=== PATIENT | female | born 1945 | race Caucasian/White ===

== ENCOUNTER 2020-09-16 10:13 | Outpatient (CLI) | payer MEDICARE, SELFPAY ==
--- NOTE | 2020-09-16 10:23 | MM_ITS ---
WS: [id number] BILATERAL SCREENING DIGITAL MAMMOGRAM WITH CAD HISTORY: SCREENING COMPARISON: 05/20/2019, 04/12/2018 and 11/11/2015 Bilateral CC and MLO views submitted. Computer aided detection analyzed. Breast composition: The breasts are heterogeneously dense, which may obscure small masses. No suspici ous masses, microcalcifications or architectural distortion. Asymmetries are stable. Benign breast ar terial calcifications in each breast. MM/[place] [id number] IMPRESSION: BI-RADS: 2-Benign FOLLOW UP: 1 Year Follow-up
--- NOTE | 2020-09-16 10:59 | XR_ITS ---
WS: [id number] DEXA (DUAL ENERGY X-RAY ABSORPTIOMETRY) Bone mineral density was performed using a [employer] machine. HISTORY: OSTEOPOROSIS COMPARISON: 04/12/2018 Lumbar spine BMD (L1-L4): 0.786 g/cm2 T score: -3.3 Z score: -1.2 Total hip BMD: Left: 0.728 g/cm2. T score: -2.2 Z score: -0.4 Right: 0.788 g/cm2. T score: -1.7 Z score: 0.1 10 year probability of a major osteoporotic fracture is 23%. Compared to the prior study from 04/12/2018. Lumbar spine bone mineral density has increased by 7.2%. Bilateral hips bone mineral density has decreased by 3.7%. XR/XR DEXA axial skeleton* [id number] IMPRESSION: OSTEOPOROSIS based upon the WHO classification for females. Significant increase in bone mineral density in the lumbar spine but significan t decrease in bone mineral density in the hips since the prior study.
== END 2020-09-16 10:14 | disposition home or self-care (01) ==
LOC: RADSHAW 10:22
PROVIDERS: PCP Electrodiagnostic Medicine; Visit Provider Electrodiagnostic Medicine
DX: Z12.31 Encounter for screening mammogram for malignant neoplasm of breast (principal); M81.0 Age-related osteoporosis without current pathological fracture
CPT/HCPCS: 77067; 77080

== ENCOUNTER 2022-05-09 07:09 | Outpatient (CLI) | payer MEDICARE, SELFPAY ==
--- NOTE | 2022-05-09 07:24 | MM_ITS ---
WS: [id number] BILATERAL SCREENING DIGITAL TOMOSYNTHESIS MAMMOGRAM WITH CAD HISTORY: SCREENING COMPARISON: 09/16/2020, 05/20/2019 Bilateral CC and MLO views with tomosynthesis and synthetic mammography submitted. Computer aided det ection analyzed. Breast composition: There are scattered areas of fibroglandular density. No suspicious masses, microc alcifications or architectural distortion. Asymmetric tissue in the upper outer quadrant. Bilateral b reast arterial calcifications. There is a soft tissue nodule against the posterior RIGHT chest wall o n the MLO projection which is a vessel. MM/[place] [id number] IMPRESSION: BI-RADS: 2-Benign FOLLOW UP: 1 Year Follow-up
== END 2022-05-09 07:10 | disposition home or self-care (01) ==
PROVIDERS: PCP Electrodiagnostic Medicine; Visit Provider Electrodiagnostic Medicine
DX: Z12.31 Encounter for screening mammogram for malignant neoplasm of breast (principal)
CPT/HCPCS: 77063; 77067

== ENCOUNTER 2022-11-15 14:05 | Outpatient (CLI) | payer MEDICARE, SELFPAY ==
--- NOTE | 2022-11-15 14:17 | XR_ITS ---
WS: [id number] DEXA (DUAL ENERGY X-RAY ABSORPTIOMETRY) Bone mineral density was performed using a [employer] machine. HISTORY: OSTEOPOROSIS COMPARISON: 09/16/2020 Lumbar spine BMD (L1-L4): 0.720 g/cm2 T score: -3.8 Z score: -1.8 Total hip BMD: Left: 0.695 g/cm2. T score: -2.5 Z score: -0.5 Right: 0.762 g/cm2. T score: -1.9 Z score: 0.0 10 year probability of a major osteoporotic fracture is 28.3%. Compared to the prior study from 09/16/2020. Lumbar spine bone mineral density has decreased by 8.4%. Bilateral hips bone mineral density has decreased by 3.8%. XR/XR DEXA axial skeleton* [id number] IMPRESSION: OSTEOPOROSIS based upon the WHO classification for females. Significant decrease in bone mineral density within the hips and lumbar spine s marko the prior study.
== END 2022-11-15 14:06 | disposition home or self-care (01) ==
PROVIDERS: PCP Electrodiagnostic Medicine; Visit Provider Electrodiagnostic Medicine
DX: M81.0 Age-related osteoporosis without current pathological fracture (principal)
CPT/HCPCS: 77080

== ENCOUNTER → 2023-04-26 13:09 | Outpatient (BNVA) | payer MEDICARE, SELFPAY | PROVIDERS: PCP Electrodiagnostic Medicine; Visit Provider Nurse Practitioner Women's Health | DX: N39.0 Urinary tract infection, site not specified (principal) | CPT/HCPCS: 81000; 87086 ==

== ENCOUNTER 2024-11-22 12:24 | Outpatient (CLI) | payer MEDICARE, SELFPAY ==
--- NOTE | 2024-11-22 12:43 | XR_ITS ---
WS: [id number] SCREENING DEXA SCAN [employer] CLINICAL INFORMATION: OSTEOPOROSIS COMPARISON: 2022 FINDINGS: The L1-L4 bone mineral density measures 0.817 g/cm2. This corresponds to a T score score of -3.0 and Z score of -0.8. Left femoral neck bone mineral density measures 0.739 g/cm2. This corresponds to a T score of -2.1 and Z score of 0.0. Right femoral neck bone mineral density measures 0.764 g/cm2. This corresponds to a T score -1.9of and Z score of 0.2. Mean femoral neck bone mineral density measures 0.751 g/cm2. This corresponds to a T score of -2.0 and Z score of 0.1. XR/XR DEXA axial skeleton* [id number] IMPRESSION: Osteoporosis lumbar spine. Osteopenia femoral necks. Patient's FRAX calculated 10 year probability for major osteoporotic fracture i s 24.8% and osteoporotic hip fracture is 8.7%. Bone marrow density lumbar spine increased 13.5% Bone mineral density femoral necks increased 3.0%
== END 2024-11-22 12:25 | disposition home or self-care (01) ==
LOC: RAD 12:26
PROVIDERS: PCP Electrodiagnostic Medicine; Visit Provider Electrodiagnostic Medicine
DX: Z13.820 Encounter for screening for osteoporosis (principal); M81.0 Age-related osteoporosis without current pathological fracture; M85.80 Other specified disorders of bone density and structure, unspecified site
CPT/HCPCS: 77080

== ENCOUNTER 2025-03-03 22:05 | Emergency (ER) | payer MEDICARE, SELFPAY ==
--- OUTSIDE RECORDS SUMMARY | 2025-03-03 22:13 | XMS_ITS | Patient Health Record ---
Author Organization [facility] Address [address] [place] [address] Care Team Providers Care Information Coder Name Role Phone Rachele Mann Unavailable [phone] Allergies Allergen (clinical drug ingredient) Drug/Non Drug Allergy documented on EMR Reaction Allergy Type Onset Date Status acetaminophen / oxycodone oxyCODONE-Acetaminoph en , Drug Allergy Active Reason For Referral No Information Medications Medication SIG (Take, Route, Frequency, Duration) Notes Start Date End Date Status Iron 90 (18 Fe) MG Tablet 1 tablet Orally Once a day Active Metoprolol Succinate ER 25 MG Tablet Extended Release 24 Hour 1 tablet Orally Once a day; Duration: 90 days Active Vitamin B 12 500 MCG Tablet 1 tablet Orally Once a day A ctive Vitamin D 50 MCG (1999 UT) Capsule 1 capsule Orally Once a day Active Immunizations Vaccine Route Administration Date Status Comme nts Influenza (whole), CPT 99680 Inactive Unknown 04/12/2015 Administered Social History Tobacco Use: Social History Observation Description Date Details (start date - stop date) Never Smoker NA - NA Social History Drugs/Alcohol: Social Info Question Answer Notes Alcohol Screen (Audit-C) Did you have a drink containing alcohol in the past year? No Points 0 Interpretation Negative Tobacco Use: Social Info Question Answer Notes xTobacco Use/Smoking Are you a nonsmoker Additional Details Category Social Info Options Details zzMigrated Social History Migrated Social History Smoking Status:Never smoked tobacco (finding) Problems Problem Type SNOMED Code ICD Code Onset Dates Problem Status W/U Status Risk Notes Problem Essential hypertension (40408418) Hypertension, unspecified type (I10) Active confirmed Problem Vitamin D deficiency (18630875) Vitamin D deficiency (E55.9) Active confirmed Plan Of Treatment No Information Insurance Providers Payer Name Payer Address Payer Phone Subscriber Number Group Number Insured Name Patient Relationship to Insured Coverage Start Date Coverage End Date [place] Medicare [address] [place]ICK[place] [phone] [id number] Adelaida Osman Self - patient is the insured [facility] [address] [place] [address] [place] [phone] [id number] Adelaida Osman Self - patient is the insured Medical (General) History Medical History History ICD Code Problem:Osteoporosis (disorder) , Status :: Active
--- OUTSIDE RECORDS SUMMARY | 2025-03-03 22:13 | XMS_ITS | Clinical Summary ---
Author Organization [facility] Address [address] [address] Care Team Providers Care Manufacturing Technician Name Role Phone Sang Joseph Primary Care Provider [phone] Allergies Active Allergy Reactions Criticality Noted Date Comments Oxycodone-Acetaminophen Itching Low 09/22/2014 Medications ofloxacin (OCUFLOX) 0.3 % solutionIndicat ions:Senile cataract, unspecified 1 Drop by See Admin Instructions route 3 times daily 1 drop in operative eye three times a day.. 5 mL 0 5 Active metoprolol succinate (TOPROL XL) 25 mg Extended Release 24 hour tablet 5 Active ASPIRIN (ASPIR-81 ORAL) Acti ve Active Problems Problem Noted Date Diagnosed Date Pseudophakia of right eye 10/22/2014 Family History Medical History Relation Name Comments Cataract Neg Hx Detachment/Tears Neg Hx Diabetes Neg Hx Glaucoma Neg Hx Macular Degen Neg Hx Social History Tobacco Use Types Packs/Day Years Used Date Smoking Tobacco: Never Smokeless Tobacco: Never Alcohol Use Standard Drinks/Week Comments Yes 0 (1 standard drink = 0.6 oz pur e alcohol) rare Comments Unknown Sex and Gender Information Value Date Recorded Sex Assigned at Not on file Legal Sex Female 9:42 AM CDT Gender Identity Not on file Sexual Orientation Not on file Last Filed Vital Signs Vital Sign Reading Time Taken Comments Blood Pressure 103/59 11/18/2014 4:07 PM CDT Pulse 74 11/18/2014 4:07 PM CDT Temperature 36.2 C (97.2 F) 11/18/2014 2:30 PM CDT Respiratory Rate 14 11/18/2014 2:30 PM CDT Oxygen Saturation 99% 11/18/2014 2:30 PM CDT Inhaled Oxygen Concentration - - Weight 56.7 kg (125 lb) 11/18/2014 4:07 PM CDT Height 165.1 cm (5' 5 ) 11/18/2014 4:07 PM CDT Body Mass Index 20.8 11/18/2014 4:07 PM CDT Plan of Treatment Health Maintenance Due Date Last Done Comments DTAP/TDAP/TD VACCINES (1 - Tdap) 08/13/1966 PNEUMOCOCCAL VACCINE 50+ YEARS (1 of 1 - PCV) 08/13/18 98 ZOSTER VACCINE (1 of 2) 08/13/1997 OSTEOPOROSIS SCREENING 08/13/2012 RSV VACCINE (60+ or ) (1 - 1-dose 75+ series) 08/13/2022 INFLUENZA VACCINE (#1) 2025 Medical Devices Implanted Type Area Auto Claim Representative Device Identifier Shelf Expiration Date Model / Serial / Lot Lens Io Tecnis 1pc 23 [id number] - [id number] Implanted:Qty: 1 on 10/15/2014 by Wilbur Rascon MD at [facility] Right: Eye [employer] 08/01/2018 [id number] / [id number] / Lens Io Tecnis 1pc 22.5 [id number] - [id number] Implanted:Qty: 1 on 11/18/2014 by Wilbur Rascon MD at [facility] Left: Eye [employer] 08/15/2018 [id number] / [id number] / Insurance RT [address] [place] [address] MEDICARE PART A AND B [facility] Advance Directives For more information, please contact: [phone] * Full Code (Latest Code Status on File) Date Activated Date Inactivated Comments 11/18/2014 12:25 PM 11/18/2014 4:51 PM * Full Code Date Activated Date Inactivated Comments 10/15/2014 11:40 AM 10/15/2014 4:03 PM Care Teams Manufacturing Technician Relationship Specialty Start Date End Date Sang Joseph DO [address] [place] [id number] PCP - General Family Practice 09/22/14
--- OUTSIDE RECORDS SUMMARY | 2025-03-03 22:13 | XMS_ITS | Clinical Summary ---
Author Organization [employer] Address [address] [facility] Attn: Epic Prelude [address]T [address] [place] [address] Care Team Providers Care Grinder Setup Operator Name Role Phone OpalSang Primary Care Provider [phone] Allergies Active Allergy Reactions Criticality Noted Date Comments Oxycodone-Acetaminophen Itching Low 09/22/2014 Medications metoprolol succinate (TOPROL XL) 25 mg Extended Release 24 hour tablet 5 Active aspirin (ASPIR-81 ORAL) 5 Active ofloxacin (OCUFLOX) 0.3 % solutionIndicat ions:Senile cataract, unspecified 1 Drop by See Admin Instructions route 3 times daily 1 drop in operative eye three times a day.. 5 mL 0 5 Active Active Problems Problem Noted Date Diagnosed Date [...] drink = 0.6 oz pur e alcohol) Comments Unknown Sex and Gender Information Value Date Recorded Sex Assigned at Not on file Legal Sex Female 3:39 AM HOSE HANDLER Gender Identity Not on file Sexual Orientation Not on file Last Filed Vital Signs Vital Sign Reading Time Taken Comments Blood Pressure 103/59 11/18/2014 4:07 PM CDT Pulse 74 11/18/2014 4:07 PM CDT Temperature 36.2 C (97.2 F) 11/18/2014 2:30 PM CDT Respiratory Rate 14 11/18/2014 2:30 PM CDT Oxygen Saturation - - Inhaled Oxygen Concentration - - Weight 56.7 [...] (#1) 2025 Medical Devices Implanted Type Area Electric Clock Mechanic Device Identifier Shelf Expiration Date Model / Serial / Lot Lens Io Tecnis 1pc 23 [id number] - [id number] Implanted:Qty: 1 on 10/15/2014 by Wilbur Rascon MD Eye Right: Eye [employer] 08/01/2018 [id number] / [id number] / Lens Io Tecnis 1pc 22.5 [id number] - [id number] Implanted:Qty: 1 on 11/18/2014 by Wilbur Rascon MD Eye Left: Eye [employer] 08/15/2018 [id number] / [id number] / Care Teams Grinder Setup Operator Relationship Specialty Start Date End Date Sang Joseph DO [address] [place] [address] PCP - General Family Practice 09/22/14
[2025-03-03 22:15] VITALS: BP 148/76; PULSE 69; RESP 16; TEMP 36.5; O2SAT 96; BMI 21.1
--- NOTE | 2025-03-03 22:45 | ED_ITS ---
HPI - Dizziness General: Chief Complaint: Dizziness Stated Complaint: Left Ear feel like Sandpaper\Pt get reji Time Seen by Provider: 03/03/25 22:34 History of Present Illness: HPI Narrative: Patient is a 79-year-old female that presents to the emergency room with left ear feeling like sandpaper, dizziness, and mild nausea. This occurred while watching TV tonight. Denies any upper respiratory symptoms, sinusitis, recent cold or illness. No shortness of breath. No blurry vision. No sensory changes. No dysphagia, no dysarthria. Associated symptoms: Reports nausea (mild); Denies change in hearing, chest pain, chills, headache(s), malaise, nasal congestion, palpitations or vomiting Associated neuro symptoms: Deny confusion or numbness in extremities Related Data Home Medications ?Medication ?Instructions ?Recorded ?Confirmed ferrous sulfate 325 mg (65 mg 325 mg PO DAILY 05/14/21 04/26/23 iron) tablet metoprolol succinate 25 mg 25 mg PO DAILY 05/14/21 tablet,extended release 24 hr nitrofurantoin macrocrystal 100 mg 100 mg PO BID 04/2604/26/23 capsule Previous Rx's ?Medication ?Instructions ?Recorded nitrofurantoin macrocrystal 100 mg 100 mg PO DAILY 6 m [facility] caps 04/26/23 capsule Allergies Allergy/AdvReac Type Severity Reaction Status Date / Time acetaminophen (From Percocet) Allergy Mild itching Verified 05/14/21 13:14 oxycodone (From Percocet) Allergy Mild itching Verified 05/14/21 13:14 Review of Systems General: Reports: 10 or more systems reviewed and unremarkable except in HPI and below Const: Denies: fever(s), chills, fatigue or malaise Eyes: Denies: change in vision or blurry vision ENMT: Reports: ear or mastoid pain and disequilibrium; Denies: throat pain, change in hearing, nasal discharge, nasal congestion or nasal obstruction Card: Denies: chest pain or palpitations Resp: Denies: dyspnea or productive cough GI: Reports: nausea (mild); Denies: abdominal pain or vomiting : Denies: flank pain or difficulty voiding Musc: Denies: neck pain, back pain or extremity pain Skin/Breast: Denies: rash or pruritus Neuro: Reports: dizziness and vertigo; Denies: headache(s), numbness in extremities, weakness in extremities, sensory changes, lack of coordination, difficulty walking, frequent falls, confusion, behavioral changes, Slurred speech present, difficulty communicating thoughts, seizure-like activity, involuntary movements or restless legs PFSH ED PFSH: Medical History (Updated 03/04/25 @ 00:06 by STEPHANIE Lynne) Tachycardia Borderline anemia Surgical History History of total hysterectomy History of back surgery repair of ruptured disc History of tonsillectomy Family History Mother Colon cancer Physical Exam Const: COMMON NORMALS: no acute distress, average body habitus and patient oriented x3 EXAM LIMITATIONS: no altered mental status and no behavioral limitations GENERAL APPEARANCE: cooperative HENMT: COMMON NORMALS: normocephalic and atraumatic HEAD & SCALP: normocephalic and atraumatic TYMPANIC MEMBRANE: TM normal on the right and unable to visualize TM (left, obscured by cerumen) Eye: COMMON NORMALS: Equal, round and reactive pupils present and EOMs intact bilaterally PUPIL: Yes Equal, round and reactive pupils present Neck/C-Spine: COMMON NORMALS: full ROM, no lymphadenopathy and supple Lymph: LYMPHATIC: no lymphadenopathy noted Chest: COMMONS NORMALS: normal inspection of the chest and normal palpation of entire chest wall Resp: COMMON NORMALS: normal respiratory effort, No retractions and No use of accessory muscles Cardio: COMMON NORMALS: regular rate and regular rhythm RATE: regular rate RHYTHM: regular rhythm GI: COMMON NORMALS: Normal to inspection, nondistended, normoactive bowel sounds present : COMMON NORMALS: Yes no CVA tenderness BLADDER/KIDNEY EXAM: Yes no CVA tenderness Back/Pelvis: COMMON NORMALS: no CVA tenderness Extremity: COMMON NORMALS: normal to inspection, full ROM and capillary refill normal Neuro: COMMON NORMALS: patient oriented x3 Psych: COMMON NORMALS: mental status grossly normal Course Vital Signs: Vital signs: Vital Signs Temperature 97.7 F 03/03/25 22:15 Pulse Rate 69 03/03/25 22:15 Respiratory Rate 16 03/03/25 22:15 Blood Pressure 148/76 03/03/25 22:15 Pulse Oximetry 96 03/03/25 22:15 Oxygen Delivery Me thod Room Air 03/03/25 22:15 MDM - Dizziness Medical Decision Making Patient is a 79-year-old female with HTN on metoprolol, HLD on atorvastatin, presented today with sudden left ear feeling like sandpaper, and dizziness, where her gait was off. The room was not spinning. This appeared to be significant for peripheral vertigo symptoms, not central vertigo symptoms. On physical examination patient had complete impaction of her left TM. Discussed with Dr. Ng. Patient still awaiting clearance of her TM with impacted cerumen prior to discharge. No radiology studies performed this visit Discharge Plan Discharge Patient Disposition: Home Clinical Impression: Cerumen impaction Qualifiers: Laterality: left Qualified Code(s): H61.22 - Impacted cerumen, left ear Condition: Stable Prescriptions: No Action metoprolol succinate 25 mg tablet extended release 24 hr 25 mg PO DAILY ferrous sulfate 325 mg (65 mg iron) tablet 325 mg PO DAILY nitrofurantoin macrocrystal 100 mg capsule 100 mg PO BID Rx Instructions: must administer with a meal/food nitrofurantoin macrocrystal 100 mg capsule 100 mg PO DAILY 180 Days Qty: 720 4RF Rx Instructions: must administer with a meal/food Discharge Orders: Discharge ED (Routine); Ordered 03/04/25 Ordered By: Sarai Fitzpatrick Referrals: Evert Duarte DO [Primary Care Provider, Family Practice] Discharge Diet: Usual diet Discharge Activity: Resume usual activity Patient Instructions: Cerumen Impaction, Patient Portal & Bonnie Instructions Activity Restrictions/Additional Instructions: - There are additional commercial oils, and lukewarm water to keep your ear clean. - Return to ED if you have worsening or changing symptoms. Print Language: Montserratian Coding Level of Care Code ED Electrical Equipment Technician for Tristian Rausch
[2025-03-04 00:30] VITALS: BP 124/76; PULSE 67; RESP 16; O2SAT 98
[2025-03-04] MEDS: DOCUSATE SODIUM 100 MG/10 ML UDC 50 MG PO (00:41)
[2025-03-04 01:59] VITALS: BP 122/65; PULSE 67; O2SAT 98
== END 2025-03-04 02:04 | disposition home or self-care (01) ==
PROVIDERS: Emergency Provider Physician Assistant; PCP Electrodiagnostic Medicine
DX: H61.22 Impacted cerumen, left ear (principal)
CPT/HCPCS: 99283; J9999

== ENCOUNTER 2025-05-05 00:12 | Emergency (ER) | payer MEDICARE, SELFPAY ==
[2025-05-05 00:19] VITALS: BP 112/76; PULSE 81; RESP 16; TEMP 36.7; O2SAT 94; BMI 21.1
--- OUTSIDE RECORDS SUMMARY | 2025-05-05 00:20 | XMS_ITS | Patient Health Record ---
Author Organization [facility] Address [address] [place] [address] Care Team Providers Care Speech Language Pathologist Name Role Phone Rachele Mann Unavailable [phone] Allergies Allergen (clinical drug ingredient) Drug/Non Drug [...] Date Status Comme nts Influenza (whole), CPT 47221 Inactive Unknown 04/12/2015 Administered Social History Tobacco [...] W/U Status Risk Notes Problem Essential hypertension (80335741) Hypertension, unspecified type (I10) Active confirmed Problem Vitamin D deficiency (93658800) Vitamin D deficiency (E55.9) Active confirmed Plan Of Treatment No Information Insurance Providers Payer Name Payer Address Payer Phone Subscriber Number Group Number Insured Name Patient Relationship to Insured Coverage Start Date Coverage End Date [place] Medicare [address] [place] [phone] [id number] Adelaida Osman Self - patient is the insured [facility] [address] [place] [address] [place] [phone] [id number] Adelaida Osman Self - patient is the insured Medical (General) History Medical History History ICD Code Problem:Osteoporosis (disorder) , Status :: Active
--- OUTSIDE RECORDS SUMMARY | 2025-05-05 00:20 | XMS_ITS | Continuity of Care Document ---
Author Organization [facility], [place], [place], [facility] (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 I was present during interview and exam. I have reviewed and agree with above documentation . Dr. Reba Duarte. [email or web address] Not available 03/04/2025 16:12:45 Plan of Treatment Reminders Order Date Submit Date Provider Last Modified By Organization Details Last Modified Time Details Appointments None record ed. Lab None record ed. Referral None record ed. Procedures None record ed. Surgeries None record ed. Imaging None record ed. Medication Orders None record ed. Patient TargetsNo targets recorded. Patient InstructionsNo instructions recorded. Reason for Referral None Reported. Problems Name Problem SNOMED Code Status Onset Date Resolution Date Notes Provider Name and Address Organization Details Recorded Time Laminectom y Completed 202111/06/2024 Laminec ciaran; 7:49AM by Felipa Aguilera, Office Visit; Promote d; acuity set as *[facility] Hysterecto my Completed 202111/06/2024 Hystere ctomy; 7:49AM by Felipa Aguilera, Office Visit; Promote d; acuity set as *; [facility] 5 08:00:20 Essential hypertensi on 85271117 Active [address], [address] [place] [address] 5, [facility] 4 10:14:47 Osteoporos is 13129007 Active [address], [address] [place] [address] 5, [facility] 3 11:05:45 Anemia 267512966 Active [address], [address] [place] [address] 5, [facility] 4 10:14:47 Hyperlipid emia 32418770 Active [address], [address] [place] [address] 5, [facility] 4 10:14:47 Recurrent urinary tract infection 428412792 Active 2023 [facility] 5 08:00:14 Problem Notes None recorded. Procedures Surgical History Date Name Laterality Status Provider Name and Address Organization Details Recorded Time 5 Cerumen Removal-Irri gation completed Ang Jay [facility] 03/11/2025 11:45:09 5 Cerumen Removal-Irri gation completed Ang [facility] 03/04/2025 16:29:37 Imaging Results None recorded. Procedure Notes None recorded. Medical Equipment None Reported. Allergies Allergen ID Allergen Name Allergen Category Reaction Reaction Severity Criticality Documentation Date Start Date Code Code System Note Provider Name and Address Organization Details Recorded Time 3020 acetamino phen / oxycodone medicatio n Not available Not available Not available 10/24/2022 98178 3 RxNorm [facility] 3 13:42:33 Medications Name Sig Start Date Stop Date Status Note LastModified by Organization Details LastModified Time amoxicill in 500 mg capsule 05/01 completed Not Available Not Available Not Available atorvasta tin 40 mg tablet TAKE 1 TABLET BY MOUTH ONCE DAILY IN THE EVENING FOR CHOLESTE ROL active Not Available Not Available No t Available azithromy katty 250 mg tablet daily 05/01 completed Not Available Not Available Not Available alendrona te 70 mg tablet TAKE 1 TABLET BY MOUTH ONCE A WEEK active Not Available Not Available No t Available nitrofura ntoin macrocrys ivania 100 mg capsule TAKE 1 CAPSULE BY MOUTH ONCE DAILY FOR 90 DAYS FOR RECURREN T UTI S 04/24 completed Not Available Not Available Not Available metoprolo l succinate ER 25 mg tablet,ex tended release 24 hr TAKE 1 TABLET BY MOUTH ONCE DAILY active Not Available Not Available No t Available Vitamin B-12 ER 1,000 mcg tablet,ex tended release weekly active 0; Recorded 04/27/20 22 7:50AM by Felipa Aguilera, Office Visit; Not Available Not Available Not Available metoprolo l tartrate 25 mg tablet Take 1 tablet every day by oral route for 90 days. 05/16 completed Not Available Not Available Not Available ferrous sulfate daily active 0; Recorded 04/27/20 22 7:50AM by Felipa Aguilera, Office Visit; Not Available Not Available Not Available metoprolo l succinate daily 05/01 completed A previous script was sent in for Tartrate , not ER. That was a wrong prescrip tion. This patient needs the ER medicati on. DM/sd; Recorded 04/27/20 22 8:37AM by Ang Jay, Office Visit; Refill Quantity : 100; Tablet; Not Available Not Available Not Available Vitamin D3 daily active 0; Recorded 04/27/20 22 7:50AM by Felipa Aguilera, Office Visit; Not Available Not Available Not Available Vitals Date Recorded Body height Body mass index (BMI) Body weight Oxygen saturation Heart rate Respiratory rate Systolic And Diastolic Provider Name and Address Organization Details Last Updated DateTime 5 162.56 cm 19.9 kg/m2 02444.4 1 g 99 % 68 /min 18 /min 100/70 mm[Hg] [facility] 5 15:51:54 Date Recorded Body height Body mass index (BMI) Body weight Oxygen saturation Heart rate Respiratory rate Systolic And Diastolic Provider Name and Address Organization Details Last Updated DateTime 5 162.56 cm 19.6 kg/m2 02504.9 3 g 98 % 64 /min 18 /min 120/78 mm[Hg] [facility] 5 11:38:14 Social History None recorded. Functional Status Question Answer Note LastModified by Organizat ion Details LastModified Time Do you use any illicit or recreational drugs? No Information not available 10/24/2022 What is your level of alcohol consumption? None [email or web address] Information not available 10/24/2022 Mental Status None recorded. Family History Relationship Description Onset Age of this Age Resolved Age Notes LastModified by Organization Details LastModified Time Mother Malignant neoplasm of colon [email or web address] Not available 2024 08:55:09 Notes:Heart disease on mater nal side --cousins Medical History No medical history recorded. Gynecological HistoryNo gynecological history recorded. Obstetrics History GPAL:G 0 P 0 0 0 0 Immunizations Vaccine Type Date Status Note Provider Nam e and Address Organization Details Recorded Time COVID-19 vaccine, vector-nr, rS-Ad26, PF, 0.5 mL 09/18/2020 completed JOSE A GAY [facility] 05/01/2023 11:01:10 Past Encounters Encounter ID Performer Location Encounter Start Date Encounter Closed Date Diagnosis/Indication Diagnosis SNOMED-CT Code Diagnosis ICD10 Code Diagnosis IMO Codes Diagnosis Note [id number] Reba Duarte DO [facility] ([facility]) [address] [place] [phone] 03/04/2025 15:34:54 03/12/2025 14:22:47 Impacted cerumen in left ear 8676063553 982091 H61.22 [id number] 03/04/25: Irrigation attempted, without success, pt to obtain debrox drops and use them, return for repeat irrigation . Health Concerns Section Related Observation LastModified by Organization Detai ls LastModified Time None Recorded Concern Status LastModified by Organization Details LastModified Time None Recorded Payers Encounter Date Sequence Insurance Name Policy Number Policy Estes Covered Member ID Estes Member ID Guarantor Name 03/04/2025 1 [id number]IC[place]/A DVANTAGE - PPO) [id number] Adelaida Lincoln Osman [id number] Adelaida Osman Notes Date Note Type Note Provider Name and Address Organization Details Recorded Time 03/04/2025 text/html ROS as noted in the HPI Pt presents for ER f/u She went to the ER at [facility] for left ear feeling like sandpaper, nausea, and dizziness yesterday, 03/03/25.Dx Cerumen impaction, irrigated and dc'd home. Advised apply mineral oil, she hasn't gotten to the store to get any yet. She denies pain to her left ear, but it still feels clogged. She is unable to hear out of her left ear. Reba Duarte DO [address] [place] [address], [phone], [facility], Michelle 03/11/2025 18:04:45 03/11/2025 text/html ROS as noted in the HPI Pt presents for recheck 1 week cerumen impaction left ear. We attempted to irrigate the ear last week, on 03/04/25, without complete success, advised she use Debrox and return. She has used the drops and returns today for irrigation. Reba Duarte DO [address] [place] [address], [phone], [facility], Michelle 03/11/2025 13:54:02 OBGyn Episode No OBEpisode recorded.
--- OUTSIDE RECORDS SUMMARY | 2025-05-05 00:20 | XMS_ITS | Data Portability ---
Author Organization [facility] Atilio Lott [facility], .L.[facility] Address [address] [address] Care Team Providers Care Form Worker Name Role Phone REBA TOMPKINS Primary Care Provider Unavailabl e Assessment Encounter Date Assessment Date Assessment LastModified by Organization Details LastModified Time 11/06/2024 11/06/2024 A Care Coordination Assessment form was filled out as part of this patient's office visit today. [email or web address] Not available 11/12/2024 16:39:04 11/20/2024 11/20/2024 Document scribed by Ang Jay Picking Supervisor. I was present during interview and exam. I have reviewed and agree with above documentation. Dr. Reba Tompkins. [email or web address] Not available 11/20/2024 12:02:45 03/04/2025 03/04/2025 Document scribed by Ang Jay Picking Supervisor. I was present during interview and exam. I have reviewed and agree with above documentation. Dr. Reba Tompkins. [email or web address] Not available 03/04/2025 16:12:45 03/11/2025 03/11/2025 Document scribed by Ang Jay Picking Supervisor. I was present during interview and exam. I have reviewed and agree with above documentation. Dr. Reba Tompkins. [email or web address] Not available 03/11/2025 11:45:13 Plan of Treatment Reminders Order Date Submit Date Provider Last Modified By Organization Details Last Modified Time Details Appointments None recorded. Lab None recorded. Referral None recorded. Procedures None recorded. Surgeries None recorded. Imaging DEXA 2024 025 [email or web address] 2 [facility] (Scheduling Orders), [address], [place], [address], 13:45:29 Medication Orders nitrofurant oin macrocrysta l 100 mg capsule 2024 025 [facility], [address], [place], [address], 11:00:06 Patient TargetsNo targets recorded. Patient InstructionsNo instructions recorded. Reason for Referral None Reported. Results Created Date Observation Date Name Description Value Unit Range Abnormal Flag Note LastModifiedBy Organization Detail LastModifiedTime 11/06/1911/05/2024 CBC WBC 7.5 x10 4.0-10 .5 Not Available [facility] [address] [facility], [place], [address], 11/05/2024 09:20:03 11/06/1911/05/2024 CBC RBC 3.59 x10 3.50-5 .50 Not Available [facility] [address] [facility], [place], [address], 11/05/2024 09:20:03 11/06/1911/05/2024 CBC HGB 11.4 g/dL 12.0-1 6.0 low Not Available [facility] [address] [facility], [place], [address], 11/05/2024 09:20:03 11/06/1911/05/2024 CBC HCT 34.9 % 37.0-4 7.0 low Not Available [facility] [address] [place] [address] [facility], [place], [address], 11/05/2024 09:20:03 11/06/1911/05/2024 CBC MCV 97.3 fL 80.0-9 9.9 Not Available [facility] [address] [place] [facility], [place], [address], 11/05/2024 09:20:03 11/06/1911/05/2024 CBC MCH 31.7 pg 27.0-3 2.0 Not Available [facility] [address] [facility] 1, [place], [address], 11/05/2024 09:20:03 11/06/1911/05/2024 CBC MCHC 32.6 g/dL 32.0-3 6.0 Not Available [facility] [address] [facility] [address] [facility], [place], [address], 11/05/2024 09:20:03 11/06/1911/05/2024 CBC RDW 13.8 % 11.5-1 4.5 Not Available [facility] [address] [facility] [address] [facility], [place], [address], 11/05/2024 09:20:03 11/06/1911/05/2024 CBC plt 375.8 x10 140.0- 451.0 Not Available [facility] [address] [facility] [address] [facility], [place], [address], 11/05/2024 09:20:03 11/06/1911/05/2024 CBC lymphocytes % 25.6 % 20.0-5 0.0 Not Available [facility] [address] [facility], [place], [address], 11/05/2024 09:20:03 11/06/1911/05/2024 CBC granulcytes % 58.6 % 30.0-7 0.0 Not Available [facility] [address] [facility] [address] [facility], [place], [address], 11/05/2024 09:20:03 11/06/1911/05/2024 CBC monocytes % 11.3 % 2.0-16 .0 Not Available [facility] [address] [facility] 1, [place], [address], 11/05/2024 09:20:03 11/06/1911/05/2024 CBC granulcytes# 4.4 x10 Not Chantelle ilable [facility] [address] [facility] 1, [place], [address], 11/05/2024 09:20:03 11/06/1911/05/2024 CBC lymphocytes # 1.9 x10 Not Available [facility] [address] [facility] 1, [place], [address], 11/05/2024 09:20:03 11/06/1911/05/2024 CBC monocytes # 0.8 x10 Not Avai lable [facility] [address] [address], [place], [address], 11/05/2024 09:20:03 11/06/1911/05/2024 CMP (FEMA LE) glucose 88.0 mg/dL 60.0-9 9.0 Not Available [facility] [address] [facility], [place], [address], 11/05/2024 10:15:11 11/06/1911/05/2024 CMP (FEMA LE) BUN (blood urea nitrogen) 18.0 mg/dL 10.0-2 6.0 Not Available [facility] [address] [facility], [place], [address], 11/05/2024 10:15:11 11/06/1911/05/2024 CMP (FEMA LE) creatinine (serum) 0.9 mg/dL 0.4-1. 5 Not Available [facility] [address] [facility], [place], [address], 11/05/2024 10:15:11 11/06/19 25 11/05/2024 CMP (FEMA LE) BUN/creatini ne ratio 20.00 ratio Not Available [facility] [address] [facility] 1, [place], [address], 11/05/2024 10:15:11 11/06/19 25 11/05/2024 CMP (FEMA LE) eGFR calculated 64.5 Not Available [facility] [address] [facility] 1, [place], [address], 11/05/2024 10:15:11 11/06/19 25 11/05/2024 CMP (FEMA LE) total protein 7.6 g/dL 6.0-8. 5 Not Available [facility] [address] [facility] 1, [place], [address], 11/05/2024 10:15:11 11/06/19 25 11/05/2024 CMP (FEMA LE) total bilirubin 0.6 mg/dL 0.2-1. 3 Not Available [facility] [address] [facility] 1, [place], [address], 11/05/2024 10:15:11 11/06/19 25 11/05/2024 CMP (FEMA LE) albumin 4.4 g/dL 3.5-5. 5 Not Available [facility] [address] [facility] 1, [place], [address], 11/05/2024 10:15:11 11/06/19 25 11/05/2024 CMP (FEMA LE) globulin 3.2 calc Not Available [facility] [address] [facility] 1, [place], [address], 11/05/2024 10:15:11 11/06/19 25 11/05/2024 CMP (FEMA LE) AST (SGOT) 30.0 U/L 0.0-46 .0 Not Available [facility] [address] [facility], [place], [address], 11/05/2024 10:15:11 11/06/19 25 11/05/2024 CMP (FEMA LE) altv (SGPT) 28.0 U/L 13.0-6 9.0 normal Not Available [facility] [address] [facility], [place], [address], 11/05/2024 10:15:11 11/06/19 25 11/05/2024 CMP (FEMA LE) A/G ratio 1.4 ratio Not Available [facility] [address] [facility] 1, [place], [address], 11/05/2024 10:15:11 11/06/19 25 11/05/2024 CMP (FEMA LE) ALP phos 74.0 U/L 30.0-1 40.0 normal Not Available [facility] [address] [place] [address] [facility], [place], [address], 11/05/2024 10:15:11 11/06/19 25 11/05/2024 CMP (FEMA LE) calcium 9.0 mg/dL 8.4-10 .5 Not Available [facility] [address] [facility] 1, [place], [address], 11/05/2024 10:15:11 11/06/19 25 11/05/2024 CMP (FEMA LE) sodium 135.0 mmol/ L 136.0- 145.0 low Not Available [facility] [address] [facility] 1, [place], [address], 11/05/2024 10:15:11 11/06/19 25 11/05/2024 CMP (FEMA LE) potassium 4.7 mmol/ L 3.5-5. 1 Not Available [facility] [address] [facility] 1, [place], [address], 11/05/2024 10:15:11 11/06/19 25 11/05/2024 CMP (FEMA LE) chloride 102.0 mmol/ L 98.0-1 10.0 normal Not Available [facility] [address] [facility] 1, [place], [address], 11/05/2024 10:15:11 11/06/19 25 11/05/2024 CMP (FEMA LE) C02 24.0 mmol/ L 22.0-3 1.0 Not Available [facility] [address] [facility] 1, [place], [address], 11/05/2024 10:15:11 11/06/1911/05/2024 CMP (FEMA LE) anion gap 9.0 calc Not Available [facility] [address] [facility] 1, [place], [address], 11/05/2024 10:15:11 11/06/19 25 11/05/2024 CMP (FEMA LE) osmolality 280.4 calc Not Available [facility] [address] [facility] 1, [place], [address], 11/05/2024 10:15:11 11/06/19 25 11/05/2024 LIPID PROFI LE (FEMA LE) cholesterol 124.0 mg/dL 0.0-20 0.0 Not Available [facility] [address] [facility] 1, [place], [address], 11/05/2024 10:15:14 11/06/19 25 11/05/2024 LIPID PROFI LE (FEMA LE) trig 97.0 mg/dL 0.0-15 0.0 Not Available [facility] [address] [facility] 1, [place], [address], 11/05/2024 10:15:14 11/06/19 25 11/05/2024 LIPID PROFI LE (FEMA LE) HDL - direct 38.0 mg/dL >40.0 low Not Available [facility] [address] [facility] 1, [place], [address], 11/05/2024 10:15:14 11/06/19 25 11/05/2024 LIPID PROFI LE (FEMA LE) VLDL - direct 19.4 mg/dL Not Available [facility] [address] [facility] 1, [place], [address], 11/05/2024 10:15:14 11/06/19 25 11/05/2024 LIPID PROFI LE (FEMA LE) LDL - direct 66.6 mg/dL 0.0-13 0.0 Not Available [facility] [address] [facility] 1, [place], [address], 11/05/2024 10:15:14 11/06/19 25 11/05/2024 TSH TSH 2.18 uIU/m L 0.49-3 .82 Not Available [facility] [address] [facility] 1, [place], [address], 11/05/2024 10:34:53 11/06/19 25 11/06/2024 VITAM IN D,25- OH,TO IVANIA,I A vitamin D,25-oh,tota l,ia 31 NG/mL 30-100 normal Vitam in D Statu s 25-OH Vitam in D: Defic iency : <20 ng/mL Insuf ficie ncy: 20 - 29 ng/mL Optim al: > or = 30 ng/mL For 25-OH Vitam in D testi ng on patie nts on D2-lima pplem entat ion and patie nts for whom quant itati on of D2 and D3 fract ions is requi red, the [employer] Assur eD(TM ) 25-OH VIT D, (D2,D 3), LC/MS /MS is recom rod d: order code 16383 (lida ents >2yrs ). See Note 1 Note 1 For addit ional infor xochitl powell refer to http: //liza Derasia gnost ics.c om/fa q/FAQ 199 (This link is being provi ded for infor montez schofield/ nurys roberts purpo ses only. ) Not Available [facility] [address] [place], [address], 11/06/2024 05:27:33 11/23/1911/22/2024 DEXA No observ ation record ed. [email or web address] [place] [address] [place], [address], 12/04/2024 16:15:14 Result Notes None recorded. Problems Name Problem SNOMED Code Status Onset Date Resolution Date Notes Provider Name and Address Organization Details Recorded Time Laminectom y Completed 202111/06/2024 Laminec ciaran; 7:49AM by Felipa Aguilera, Office Visit; Promote d; acuity set as *; Harriett jeffery [facility], L.L.CThea 5 08:00:23 Hysterecto my Completed 202111/06/2024 Hystere ctomy; 7:49AM by Felipa Aguilera, Office Visit; Promote d; acuity set as *; Harriett jeffery [facility], L.L.CThea 5 08:00:20 Essential hypertensi on 86868208 Active 2022 Reba Tompkins, [address], [address], [facility] Franky, L.L.CThea 4 10:14:47 Osteoporos is 36477312 Active 2022 Reba Tompkins, [address], [address], [facility] Franky, L.L.CThea 3 11:05:45 Anemia 406922179 Active 2023 Reba Tompkins DO [address] [place] [address], [address], [facility], EllaLHoward 4 10:14:47 Hyperlipid emia 70011292 Active 2023 Reba Tompkins DO [address] [place] [address], [address], [facility], EllaLTheaCThea 4 10:14:47 Recurrent urinary tract infection 626485878 Active 2023 Harriett jeffery [facility], EllaLHoward 5 08:00:14 Problem Notes None recorded. Procedures Surgical History Date Name Laterality Status Provider Name and Address Organization Details Recorded Time 5 Cerumen Removal-Irri gation completed Ang [facility], LTheaLHoward 03/11/2025 11:45:09 5 Cerumen Removal-Irri gation completed [facility], LTheaLTheaCThea 03/04/2025 16:29:37 Imaging Results None recorded. Procedure Notes None recorded. Medical Equipment None Reported. Allergies Allergen ID Allergen Name Allergen Category Reaction Reaction Severity Criticality Documentation Date Start Date Code Code System Note Provider Name and Address Organization Details Recorded Time 3020 acetamino phen / oxycodone medicatio n Not available Not available Not available 10/24/2022 87000 3 RxNorm JORDYN DAWSON jeffery [facility], L.L.CThea 3 13:42:33 Medications Name Sig Start Date [...] Details Last Updated DateTime 5 162.56 cm 20.3 kg/m2 08263.9 g 99 % 64 /min 18 /min 112/70 mm[Hg] Harriett [facility], L.L.CThea 5 08:52:34 Date Recorded Body height Body mass index (BMI) Body weight Oxygen saturation Heart rate Respiratory rate Systolic And Diastolic Provider Name and Address Organization Details Last Updated DateTime 5 162.56 cm 20.3 kg/m2 20231.9 g 96 % 72 /min 18 /min 120/72 mm[Hg] Harriett Law[facility], L.L.C. 5 11:41:30 Date Recorded Body height Body mass index (BMI) Body weight Oxygen saturation Heart rate Respiratory rate Systolic And Diastolic Provider Name and Address Organization Details Last Updated DateTime 5 162.56 cm 19.9 kg/m2 59869.4 1 g 99 % 68 /min 18 /min 100/70 mm[Hg] [facility], L.L[facility]C. 5 15:51:54 Date Recorded Body height Body mass index (BMI) Body weight Oxygen saturation Heart rate Respiratory rate Systolic And Diastolic Provider Name and Address Organization Details Last Updated DateTime 5 162.56 cm 19.6 kg/m2 35201.9 3 g 98 % 64 /min 18 /min 120/78 mm[Hg] [facility], L.L.C. 5 11:38:14 Date Recorded Body height Body mass index (BMI) Body weight Oxygen saturation Heart rate Respiratory rate Systolic And Diastolic Provider Name and Address Organization Details Last Updated DateTime 5 162.56 cm 19.7 kg/m2 21009.1 2 g 98 % 52 /min 18 /min 124/80 mm[Hg] FELIPA AGUILERA [facility], L.L.C. 5 09:53:18 Social History None recorded. Functional Status Question Answer Note LastModified by Organizat ion Details LastModified Time Do you use any illicit or recreational drugs? No [email or web address] Information not available 10/24/2022 What is your level of alcohol consumption? None [email or web address] Information not available 10/24/2022 Mental Status None recorded. Family History Relationship Description Onset Age of this Age Resolved Age Notes LastModified by Organization Details LastModified Time Mother Malignant neoplasm of colon [email or web address] Not available 2024 08:55:09 Notes:Heart disease on mater nal side --cousins Medical History No medical history recorded. Gynecological HistoryNo gynecological history recorded. Obstetrics History GPAL:G 0 P 0 0 0 0 Immunizations Vaccine Type Date Status Note Provider Nam e and Address Organization Details Recorded Time COVID-19 vaccine, vector-nr, rS-Ad26, PF, 0.5 mL 09/18/2020 completed KOBY Mike [facility], L.LHoward 05/01/2023 11:01:10 Past Encounters Encounter ID Performer Location Encounter Start Date Encounter Closed Date Diagnosis/Indication Diagnosis SNOMED-CT Code Diagnosis ICD10 Code Diagnosis IMO Codes Diagnosis Note [id number] Reba Tompkins DO [facility] ([facility]) [address] [place] [phone] 10/24/2022 13:17:37 10/24/2022 18:30:13 Adult health examination 405185012 Z00.00 I counseled patient on diet, exercise, weight, and mental health. We discussed appropriat e cancer screenings . All questions were addressed. We will obtain wellness labs with phone followup. Screening for cardiovascular system disease 270626289 Z13.6 Screening for malignant neoplasm of colon 749601617 Z12.11 I have reviewed and discussed colon cancer screening options, including colonoscop y. Discussed risks vs benefits including risk of infection and bleeding, perforatio n, possible need for surgery, reaction to medication s, and sever injury or . We discussed pt requiring sedation and possible general anesthesia . Pt agrees to proceed with Colonoscop y at [facility]. Screening mammography 24 414991 Z12.31 pt declines this year. UTD from last year. Essential hypertension 89931196 I10 continue metoprolol Osteoporosis 69922245 M8 1.0 continue calcium and vit D. with daily exercise.w ill repeat bone scan and check vit D. [id number] Reba Tompkins DO [facility] ([facility]) [address] [place] [phone] 05/01/2023 10:37:41 05/01/2023 14:08:43 Essential hypertension 77229019 I10 continue metoprolol Screening for malignant neoplasm of colon 366217134 Z12.11 I counseled pt on colon cancer in detail. risks, preventati ve options, and discussed mutiple screening options. Offered colon cancer screenings . Pt declines colonoscop y, but is willing to proceed with cologuard screening. I counseled pt on this test. Ordered. Osteoporosis 78939541 M8 1.0 Last DEXA scan was done on 11/15/2022 which showed osteoporos is that was worse compared to 2 years prior.Cont inue calcium and vit D. with daily exercise.s tart back on alendronat e, she took it for 2 years several years ago.will repeat bone scan in 2 years and check vit D today Anemia 693601461 D64.9 Adult [facility] examination 198082413 Z00.00 [id number] Reba Tompkins DO [facility] ([facility]) [address] [place] [phone] 10/30/2023 08:52:42 10/30/2023 09:09:01 Essential hypertension 80142619 I10 continue metoprolol [id number] Reba Tompkins DO [facility]) [address] [place] [phone] 10/31/2023 09:49:55 10/31/2023 16:02:09 Essential hypertension 40463975 I10 continue metoprolol Screening for malignant neoplasm of colon 238784506 Z12.11 I counseled pt on colon cancer in detail. risks, preventati ve options, and discussed mutiple screening options. Offered colon cancer screenings . Pt declines colonoscop y, but is willing to proceed with cologuard screening. I counseled pt on this test. Ordered. Osteoporosis 34481226 M8 1.0 Last DEXA scan was done on 11/15/2022 which showed osteoporos is that was worse compared to 2 years prior.Cont inue calcium and vit D. with daily exercise.s tart back on alendronat e, she took it for 2 years several years ago.will repeat bone scan in 2 years and check vit D today Anemia 533590959 D64.9 Hgb stable. continue once daily iron supplement Adult [facility] examination 645313391 Z00.00 Patient presented to office today for their Medicare Annual Wellness Visit. Education was provided on healthy nutrition, including a diet rich in fruits and vegetables , minimizing simple carbohydra edward, salt, and saturated fats. Encouraged regular cardiovasc ular exercise such as walking at least 30 minutes daily, 5 times per week. Emphasized preventive health measures and educated pt on fall prevention and community- based lifestyle interventi ons to help reduce health risks and promote healthy living. Hyperlipidemia 66514912 E78.5 reviewed las, worsening, will start statin. I counseled the patient on diagnosis, treatment options, medication s, and expectatio ns. All questions were addressed. They were instructed to call the office or come in for Follow Up with any questions, concerns, or worsening problems. [id number] Reba Tompkins DO [facility] ([facility]) [address] [place] [phone] 04/18/2024 09:02:31 04/19/2024 11:07:50 Recurrent urinary tract infection 860887743 N39.0 frequent. taking macrobid 100mg once daily. counseled on prevention , hygeine. Osteoporosis 57010032 M8 1.0 Last DEXA scan was done on 11/15/2022 which showed osteoporos is that was worse compared to 2 years prior.Cont inue calcium and vit D. with daily exercise.s tart back on alendronat e, she took it for 2 years several years ago.will repeat bone scan in 2 years and check vit D today Hyperlipidemia 26776981 E78.5 Stable. Will repeat labs. Continue Atorvastat in. Counseled on diet and exericse. Essential hypertension 89212557 I10 continue metoprolol , stable. Anemia 403638254 D64.9 repeat labs. . continue once daily iron supplement [id number] Reba Tompkins DO [facility] ([facility]) [address] [place] [address] 11/05/2024 08:36:11 11/06/2024 12:33:10 Anemia 839070675 D64.9 repeat labs. . continue once daily iron supplement Essential hypertension 40361083 I10 continue metoprolol , stable. Hyperlipidemia 18725555 E78.5 Stable. Will repeat labs. Continue Atorvastat in. Counseled on diet and exericse. Osteoporosis 45876535 M8 1.0 Last DEXA scan was done on 11/15/2022 which showed osteoporos is that was worse compared to 2 years prior.Cont inue calcium and vit D. with daily exercise.s tart back on alendronat e, she took it for 2 years several years ago.will repeat bone scan in 2 years and check vit D today [id number] Reba Tompkins DO [facility] ([facility]) [address] [place] [phone] 11/06/2024 08:16:56 11/06/2024 09:31:15 Anemia 950083038 D64.9 repeat labs stable . continue once daily iron supplement Hyperlipidemia 24428108 E78.5 Stable. Will repeat labs. Continue Atorvastat in. Counseled on diet and exercise. Osteoporosis 51744553 M8 1.0 Last DEXA scan was done on 11/15/2022 which showed osteoporos is that was worse compared to 2 years prior.Cont inue calcium and vit D. with daily exercise.s tarted back on alendronat e 11/2022, she took it for 2 years several years ago.will repeat bone scan. counseled Essential hypertension 74633906 I10 continue metoprolol . Recurrent urinary tract infection 009392800 N39.0 frequent. taking macrobid 100mg once daily. counseled on prevention , hygeine. [id number] Reba Tompkins DO [facility] ([facility]) [address] [place] [phone] 11/20/2024 10:20:11 11/27/2024 09:17:12 Essential hypertension 89986938 I10 11/20/24: off Metoprolol d/t near syncopal episodes, improved. Reviewed BP and HR log, ok to continue off antihypert ensive med. Continue to monitor BP and HR at home, keep a log, let me know if HR increasing , racing. To monitor caffeine intake if heart is racing. Hyperlipidemia 18793584 E78.5 Stable. Will repeat labs. Continue Atorvastat in. Counseled on diet and exercise. Osteoporosis 65831001 M8 1.0 Last DEXA scan was done on 11/15/2022 which showed osteoporos is that was worse compared to 2 years prior.Cont inue calcium and vit D. with daily exercise.s tarted back on alendronat e 11/2022, she took it for 2 years several years ago.will repeat bone scan as ordered. counseled [id number] Reba Tompkins DO [facility] ([facility]) [address] [place] [phone] 03/04/2025 15:34:54 03/12/2025 14:22:47 Impacted cerumen in left ear 9606691253 404135 H61.22 [id number] 03/04/25: Irrigation attempted, without success, pt to obtain debrox drops and use them, return for repeat irrigation . [id number] Reba Tompkins DO [facility] ([facility]) [address] [place] [address] 03/11/2025 11:26:00 03/17/2025 10:48:00 Impacted cerumen in left ear 9225021240 628869 H61.22 [id number] 03/11/25: Resolved. I completed removed with normal exam post procedure without complicati on as above. I counseled pt on ear care.: Irrigation attempted, without success, pt to obtain debrox drops and use them, return for repeat irrigation . Health Concerns Section Related Observation LastModified by Organization Detai ls LastModified Time None Recorded Concern Status LastModified by Organization Details LastModified Time None Recorded Advance Directives Directive None Recorded Payers Insurance Date Sequence Insurance Name Policy Number Policy Estes Covered Member ID Estes Member ID Guarantor Name 04/21/2025 1 [place] (MEDIC[place]/ ADVANTAGE - PPO) [id number] Adelaida Osman [id number] Adelaida Osman 03/04/2025 1 [employer] (MEDICARE REPLACEMENT/ ADVANTAGE - HMO) Adelaida Osman [id number] Adelaida Osman 03/12/2025 2 MEDIC[place]: [place]PS Adelaida Osman [id number] Adelaida Osamn Notes Date Note Type Note Provider Name and Address Organization Details Recorded Time 5 text/html Annual WellnessReported by PatientSocial/Behavioral HistoryFor diet and nutrition, patient reportshealthy diet. For fracture risk, patient reportsno history of fractures,no recent explained fracture,no sudden unexplained fractures, andno previous musculoskeletal injuries. For physical activity, patient reportsexercises on a regular basis,recent increase in physical activity, andgood physical condition. For additional lifestyle factors, patient reportsno tobacco useandno alcohol intake.Mental Status:For depression risk, patient reportsnever feels sad, empty, or tearful,no loss of interest in activities,no significant changes in weight,no sleep disturbances or insomnia,no agitation,no loss of energy,no feelings of worthlessness or guilt,no thoughts of suicide,no history of depression, andno history of mood disorders.Functional AbilityFor hearing, patient reportsno loss of hearing. For vision, patient reportsno vision problems.ROS as noted in the HPI Pt presents for annual exam and CCA visit labs done on 11/05/24Hgb 11.4 and Hct 34.9, sodium 135vit d 31 and TSH 2.18 A cpl weeks ago she had 16 episodes and 2 episodes last week that she felt like she was going to pass out. She can feel it coming on and she has to sit down and relax. She describes it as she gets hot and feels a surge of blood flow and then she thinks her bp drops and after a few mins then she is okShe had had these issues for decades, and was placed on metoprolol for this after a negative workup. She has not been checking her bp, but according to her [employer] research this is what is occurring. She is requesting refill on nitrofurantoin for recurrent uti's but only a month supply she is not taking daily only as needed Reba Tompkins DO [address] [place] [address], [phone], [facility], Michelle 11/12/2024 16:39:52 5 text/html ROS as noted in the HPI Pt presents for recheck 2 weeks HTN, near syncope I last saw her on 11/06/24, c/o near syncopal episodes.She stopped her Metoprolol approx 2 weeks ago. Her bp has been good, running between 84/66 to 139/82 for the last 2 weeks since being off her med, no lows after 11/11/24, no readings > 140/90.HR 90's-102bpm.No recurrence of near syncope since stopping her Metoprolol. Previously drinking 12pack Pepsi daily, now drinking 1 Pepsi daily. Reba Tompkins DO [address] [place] [address], [phone], [facility], Michelle 11/27/2024 07:30:55 5 text/html ROS as noted in the HPI Pt presents for ER f/u She went to the ER at [facility] for left ear feeling like sandpaper, nausea, and dizziness yesterday, 03/03/25.Dx Cerumen impaction, irrigated and dc'd home. Advised apply mineral oil, she hasn't gotten to the store to get any yet. She denies pain to her left ear, but it still feels clogged. She is unable to hear out of her left ear. Reba Tompkins DO [address] [place] [address], [phone], [facility], LTheaLTheaC. 03/11/2025 18:04:45 5 text/html ROS as noted in the HPI Pt presents for recheck 1 week cerumen impaction left ear. We attempted to irrigate the ear last week, on 03/04/25, without complete success, advised she use Debrox and return. She has used the drops and returns today for irrigation. Reba Tompkins DO [address] [place] [address], [phone], [facility], L.LTheaC. 03/11/2025 13:54:02 5 text/html HypertensionReported by PatientHPIFor severity, patient reportsimproving. For self care, patient reportsnot under emotional stress. For associated symptoms, patient reportsno shortness of breath,no fatigue,no palpitations, andno decrease in exercise tolerance.ROS as noted in the HPI Pt presents for 6mth f/u HTN, Osteoporosis, HLD Admits to not checking bp at homeBP 124/80 in clinic this am.Taking Metoprolol at hs, tolerating well. Pt denies any recent med changes, ER trips, or hospitalizations. no procedures needed. no recurrence since. She brings with her today copies of DPOA for us to have on file. Not Available Not Available Not Available OBGyn Episode No OBEpisode recorded.
--- OUTSIDE RECORDS SUMMARY | 2025-05-05 00:20 | XMS_ITS | Clinical Summary ---
Author Organization [facility] Address [address] [address] Care Team Providers Care Face Hardener Name Role Phone Sang Joseph Primary Care Provider [phone] Allergies Active Allergy Reactions Criticality Noted Date [...] (#1) 2025 Medical Devices Implanted Type Area Gold Layer Device Identifier Shelf Expiration Date Model / Serial / Lot Lens Io Tecnis 1pc 23 [id number] - [id number] Implanted:Qty: 1 on 10/15/2014 by Wilbur Rascon MD at [facility] Right: Eye [employer] 08/01/2018 [id number] / [id number] / Lens Io Tecnis 1pc 22.5 [id number] - [id number] Implanted:Qty: 1 on 11/18/2014 by Wilbur Rascon MD at [facility] Left: Eye [employer] 08/15/2018 [id number] / [id number] / Insurance RT [address] [place] [address] MEDICARE PART A AND B [facility] Advance Directives For more information, please contact: [phone] * Full Code (Latest Code Status on File) Date Activated Date Inactivated Comments 11/18/2014 12:25 PM 11/18/2014 4:51 PM * Full Code Date Activated Date Inactivated Comments 10/15/2014 11:40 AM 10/15/2014 4:03 PM Care Teams Face Hardener Relationship Specialty Start Date End Date Sang Joseph DO [address] [place] [id number] PCP - General Family Practice 09/22/14
--- OUTSIDE RECORDS SUMMARY | 2025-05-05 00:20 | XMS_ITS | Clinical Summary ---
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 Gender Identity Not on file Sexual Orientation [...] (#1) 2025 Medical Devices Implanted Type Area Management Specialist Device Identifier Shelf Expiration Date Model / Serial / Lot Lens Io Tecnis 1pc 23 [id number] - [id number] Implanted:Qty: 1 on 10/15/2014 by Wilbur Rascon MD Eye Right: Eye [employer] 08/01/2018 [id number] / [id number] / Lens Io Tecnis 1pc 22.5 [id number] - [id number] Implanted:Qty: 1 on 11/18/2014 by Wilbur Rascon MD Eye Left: Eye [employer] 08/15/2018 [id number] / [id number] / Care Teams Telecom Field Technician Relationship Specialty Start Date End Date Sang Joseph DO [address] [place] [address] PCP - General Family Practice 09/22/14
--- OUTSIDE RECORDS SUMMARY | 2025-05-05 00:20 | XMS_ITS | Continuity of Care Document ---
Author Organization [facility] [place], [facility] ([facility]) Address [address] [facility] [place] [place] [address] Care Team Providers Care Supervisor Engine Assembly Name Role Phone REBA DUARTE Primary Care Provider Unavailabl e Assessment Encounter Date Assessment Date Assessment LastModified by Organization Details LastModified Time 03/11/2025 03/11/2025 Document scribed by Ang [employer] Automotive Electrician. I was present during interview and exam. I have reviewed and agree with above documentation . Dr. Reba Duarte. [email or web address] Not available 03/11/2025 11:45:13 Plan of [...] d; acuity set as *; [facility] 08[facility]23 Hysterecto my Completed 202111/06/2024 Hystere ctomy; 7:49AM by Felipa Aguilera, Office Visit; Promote d; acuity set as *; Harriett jeffery [facility] 5 08:00:20 Essential hypertensi on 24824322 Active [address], [address] [place] [address] 5, [facility] 4 10:14:47 Osteoporos is 98075797 Active [address], [address] [place] [address] 5, [facility] 3 11:05:45 Anemia 052497705 Active [address], [address] [place] [address] 5, [facility] 4 10:14:47 Hyperlipid emia 34637742 Active [address], [address] [place] [address] 5, [facility] 4 10:14:47 Recurrent urinary tract infection 660451541 Active 2023 Harriett jeffery [facility] 5 08:00:14 Problem Notes None recorded. Procedures Surgical History Date Name Laterality Status Provider Name and Address Organization Details Recorded Time 5 Cerumen Removal-Irri gation completed Ang Jay [facility] 03/11/2025 11:45:09 5 Cerumen Removal-Irri gation completed Ang [facility] 03/04/2025 16:29:37 Imaging Results None recorded. Procedure Notes None recorded. Medical Equipment None Reported. Allergies Allergen ID Allergen Name Allergen Category Reaction Reaction Severity Criticality Documentation Date Start Date Code Code System Note Provider Name and Address Organization Details Recorded Time 3020 acetamino phen / oxycodone medicatio n Not available Not available Not available 10/24/2022 12856 3 RxNorm [facility] 3 13:42:33 Medications Name Sig Start Date [...] Updated DateTime 5 162.56 cm 19.6 kg/m2 90204.9 3 g 98 % 64 /min 18 /min 120/78 mm[Hg] Harriett Lawler [facility] 5 11:38:14 Social History None recorded. Functional Status Question Answer Note LastModified by Organizat ion Details LastModified Time Do you use any illicit or recreational drugs? No [email or web address] Information not available 10/24/2022 What is your level of alcohol consumption? None [email or web address] Information not available 10/24/2022 Mental Status None recorded. Family History Relationship Description Onset Age of this Age Resolved Age Notes LastModified by Organization Details LastModified Time Mother Malignant neoplasm of colon [email or web address] Not available 2024 08:55:09 Notes:Heart disease on mater nal side --cousins Medical History No medical history recorded. Gynecological HistoryNo gynecological history recorded. Obstetrics History GPAL:G 0 P 0 0 0 0 Immunizations Vaccine Type Date Status Note Provider Nam e and Address Organization Details Recorded Time COVID-19 vaccine, vector-nr, rS-Ad26, PF, 0.5 mL 09/18/2020 completed JOSE A jeffery [facility] 05/01/2023 11:01:10 Past Encounters Encounter ID Performer Location Encounter Start Date Encounter Closed Date Diagnosis/Indication Diagnosis SNOMED-CT Code Diagnosis ICD10 Code Diagnosis IMO Codes Diagnosis Note [id number] Reba Duarte DO [facility] ([facility]) [address] [place] [phone] 03/04/2025 15:34:54 03/12/2025 14:22:47 Impacted cerumen in left ear 5409512601 087877 H61.22 [id number] 03/04/25: Irrigation attempted, without success, pt to obtain debrox drops and use them, return for repeat irrigation . [id number] Reba Duarte DO [facility] ([facility]) [address] [place] [phone] 03/11/2025 11:26:00 03/17/2025 10:48:00 Impacted cerumen in left ear [id number] 527704 H61.22 [id number] 03/11/25: Resolved. I completed removed with normal [...] Member ID Estes Member ID Guarantor Name 03/11/2025 1 [place] ([place]IC[place]AC[place]/A DVANTAGE - PPO) [id number] Adelaida Osman [id number] Adelaida Osman Notes Date Note Type Note Provider Name and Address Organization Details Recorded Time 03/11/2025 text/html ROS as noted in the HPI Pt presents for recheck 1 week cerumen impaction left ear. We attempted to irrigate the ear last week, on 03/04/25, without complete success, advised she use Debrox and return. She has used the drops and returns today for irrigation. Reba Duarte, DO [address] [place] [address], [phone], [facility] 03/11/2025 13:54:02 OBGyn Episode No OBEpisode recorded.
--- NOTE | 2025-05-05 00:43 | XRR_ITS ---
PROCEDURE INFORMATION: Exam: XR Chest Exam date and time: 05/05/2025 1:01 AM Age: 79 years old Clinical indication: Pain; Chest pressure; Additional info: Chest pain; AMS TECHNIQUE: Imaging protocol: Radiologic exam of the chest. Views: 1 view. COMPARISON: No relevant prior studies available. FINDINGS: Lungs: Hyperinflation with emphysema, correlate for COPD. Pleural spaces: No focal consolidation, pleural effusion, or pneumothorax. Heart/Mediastinum: Unremarkable. No cardiomegaly. Bones/joints: Unremarkable. XR/XR chest 1V portable [id number] IMPRESSION: 1. Hyperinflation with emphysema, correlate for COPD. 2. No focal consolidation, pleural effusion, or pneumothorax.
--- NOTE | 2025-05-05 00:44 | ECG_ITS ---
[facility]: [facility]05 Pat Name: Adelaida Osman Department: Room: Gender: Female [employer] Worker: : 1945 Requested By: Keith Bray Order Number: [id number] Elly MD: Raquel Montano M.D. Measurements Intervals [place] Rate: 73 P: 57 ME: 225 QRS: -5 QRSD: 78 T: 69 QT: 348 QTc: 385 Interpretive Statements SINUS RHYTHM WITH FIRST DEGREE AV BLOCK No previous ECG available for comparison Electronically Signed On 05-05-2025 10:32:58 SOUNDSCRIBER MECHANIC by Raquel Montano M.D. [email or web address]
[2025-05-05 00:56] VITALS: BP 138/72; PULSE 75; O2SAT 97
[2025-05-05 00:58] LABS: Hematocrit 33.5 % (36-47); Hemoglobin 11.10 g/dL (11.27-16.99); Mean Corpuscular HGB Conc 33.1 g/dL (30-55); Mean Corpuscular Hemoglobin 30.7 pg (27-33); Mean Corpuscular Volume 92.8 fl (85-98); Nucleated Red Blood Cells % 0 %; Platelet Count 352 10^3/cmm (157-399); Red Blood Count 3.61 10^6/uL (3.85-5.65); White Blood Count 9.10 10^3/uL (3.29-11.43)
[2025-05-05 01:16] LABS: Troponin(5th) Baseline 17 ng/L (0-10)
[2025-05-05 01:34] LABS: Glucose Urine UA Negative (Normal); Nitrate Urine Positive (Negative); Specific Gravity, Urine 1.013 (1.005-1.030)
[2025-05-05 01:39] LABS: Add Urine Microscopic? YES
[2025-05-05 01:49] LABS: Alanine Aminotransferase 29 U/L (0-33); Albumin Level 4.4 g/dL (3.5-5.2); Alkaline Phosphatase 112 U/L (35-105); Anion Gap 14.8 (5-19); Aspartate Amino Transferase 32 U/L (0-32); Blood Urea Nitrogen 17 mg/dL (8-23); Calcium 9.1 mg/dL (8.5-10.5); Carbon Dioxide 22 mmol/L (22-29); Chloride 100 mmol/L (98-107); Globulin 2.5 g/dL (1.3-4.6); Glucose 129 mg/dL (65-115); Magnesium 2.3 mg/dL (1.7-2.3); NT Pro B Type Natriuretic Pept 606 pg/mL (0-450); Osmolality Calculated 277 mOsm/kg (285-295); Potassium 4.8 mmol/L (3.5-5.1); Sodium 132 mmol/L (136-145); Thyroid Stimulating Hormone 2.01 uIU/mL (0.27-4.20); Total Protein 6.9 g/dL (6.6-8.7)
--- NOTE | 2025-05-05 02:14 | ED_ITS ---
HPI - Altered Mental Status 2 General: Chief Complaint: Altered Mental Status Stated Complaint: ams Time Seen by Provider: 05/05/25 00:24 History of Present Illness: Patient is a 79-year-old female with a hx of HTN who presents after an episode at home characterized by being hard to arouse then coming to with confusion a few minutes later but not having any witnessed seizure like activity. The event was witnessed by her partner, who noted that she was difficult to awaken, had her eyes open and staring, and was unresponsive despite attempts to rouse her. The patient does not recall the event, with her last memory being going to bed. She reports feeling well currently, with no lingering symptoms, headache, chest pain, or other complaints. She has had a few brief episodes today similar to prior vasovagal sensations, which have improved since her blood pressure medication was changed to nighttime dosing. She denies any recent trauma, vomiting, diarrhea, chest pain, respiratory symptoms, or infectious complaints. has not followed up with a physician in a few years. Related Data Home Medications ?Medication ?Instructions ?Recorded ?Confirmed ferrous sulfate 325 mg (65 mg 325 mg PO DAILY 05/14/21 04/26/23 iron) tablet metoprolol succinate 25 mg 25 mg PO DAILY 05/14/21 tablet,extended release 24 hr nitrofurantoin macrocrystal 100 mg 100 mg PO BID 04/2604/26/23 capsule Previous Rx's ?Medication ?Instructions ?Recorded nitrofurantoin macrocrystal 100 mg 100 mg PO DAILY [address] [facility] #720 caps 04/26/23 capsule cephalexin 500 mg capsule 500 mg PO BID #10 caps 05/05 Allergies Allergy/AdvReac Type Severity Reaction Status Date / Time acetaminophen (From Percocet) Allergy Mild itching Verified 05/14/21 13:14 oxycodone (From Percocet) Allergy Mild itching Verified 05/14/21 13:14 Review of Systems 2 General: Reports: 10 or more systems reviewed and unremarkable except in HPI and below Const: Denies: fever(s) or chills Eyes: Denies: change in vision or eye discharge Card: Denies: chest pain, palpitations or swelling of feet/ankles Resp: Denies: dyspnea or productive cough GI: Denies: abdominal pain or diarrhea Musc: Denies: neck pain or back pain Skin/Breast: Denies: rash or jaundice Neuro: Reports: dizziness and confusion; Denies: headache(s), numbness in extremities or weakness in extremities Travis/Lymph: Denies: easy bruising or easy bleeding PFSH ED 2 PFSH: Medical History (Updated 05/05/25 @ 04:00 by Keith Bray DO) Tachycardia Borderline anemia Surgical History History of total hysterectomy History of back surgery repair of ruptured disc History of tonsillectomy Family History Mother Colon cancer Physical Exam 2 Narrative: thin but well appearing, VSS, NAD, afebrile. no external signs of trauma, GCS 15, PERRL, 5/5 motor and sensation to all 4 extremities, CN 2-12 intact, no pronator drift, able to ambualte without issue. breathing comfortably on RA, saturating well, able to speak in full sentences. NSR with no murmurs, no leg swelling, good cap refill, 2+ pulses throughout. abd sft NT ND, bowel sounds intact, no CVA ttp Course 2 Vital Signs: Vital signs: Vital Signs Temperature 98.0 F 05/05/25 00:19 Pulse Rate 93 05/05/25 03:53 Respiratory Rate 16 05/05/25 00:19 Blood Pressure 114/75 05/05/25 03:53 Pulse Oximetry 94 05/05/25 03:53 Oxygen Delivery Me thod Room Air 05/05/25 03:53 MDM - Altered Mental Status Medical Decision Making -ddx: orthostatic vs vagal vs cardiogenic syncope, seizure, URI, PNA, UTI, dehydration, electrolyte abnl -patient with short episode of unresponsive like episode, has seemingly had in past without known etiology, is feeling at her baseline now, corrobated by . not having any symptoms on exam currently, no obvious triggers to episode, no cardiac hx, wanted to be dc'd home since back to baseline but agreeable to general cardiac workup after discussion. -ED valencia showing some type of new degree of slight cardiac dysnfunction, with BNP 600 and troponin mildly elevated but delta negative, with no concerning EKG changes and most likely in setting of BNP being elevated, no hx of CHF, no recent cardiac testing, possibly in setting of prolonged HTN and being diastolic in nature but importnantly no effusions, cardiomegaly, pulm vasc congestino on CXR, no compromises to resp status, no leg swelling. also found to have probable UTI, no real symptoms specficially but with this episode, will treat as cystitis. Offered admission for possible new CHF valencia and treatment of her UTI, but she had no new furhter episodes in the ED, felt well overall and wanted to go home, and so with a strong support surrounding her in her husabnd and son, no more episodes and low comorobidites she was deemed stable for oupatient evaluation of her possible mild CHF and dc'd with abx and strict return precautions given. Lab Data 05/05/25 00:51 05/05/25 00:51 Radiology Impressions Chest X-Ray 05/05/25 00:43 IMPRESSION: 1. Hyperinflation with emphysema, correlate for COPD. 2. No focal consolidation, pleural effusion, or pneumothorax. Laboratory Results WBC 9.10 10^3/uL (3.29-11.43) 05/05/25 00:51 RBC 3.61 10^6/uL (3.85-5.65) L 05/05/25 00:51 Hgb 11.10 g/dL (11.27-16.99) L 05/05/25 00:51 Hct 33.5 % (36-47) L 05/05/25 00:51 MCV 92.8 fl (85-98) 05/05/25 00:51 MCH 30.7 pg (27-33) 05/05/25 00:51 MCHC 33.1 g/dL (30-55) 05/05/25 00:51 RDW 13.5 % (12.1-15.1) 05/05/25 00:51 Plt Count 352 10^3/cmm (157-399) 05/05/25 00:51 MPV 9.5 fL (7.4-10.4) 05/05/25 00:51 Neut % (Auto) 75.8 % 05/05/25 00:51 Lymph % (Auto) 14.8 % 05/05/25 00:51 Maverick % (Auto) 7.9 % 05/05/25 00:51 Eos % (Auto) 0.4 % 05/05/25 00:51 Baso % (Auto) 0.7 % 05/05/25 00:51 Neut # (Auto) 6.89 10^3/uL (1.8-7.7) 05/05/25 00:51 Lymph # (Auto) 1.4 10^3/uL (0.8-4.8) 05/05/25 00:51 Maverick # (Auto) 0.7 10^3/uL (0.2-0.9) 05/05/25 00:51 Eos # (Auto) 0.0 10^3/uL (0.0-0.8) 05/05/25 00:51 Baso # (Auto) 0.1 10^3/uL (0.0-0.1) 05/05/25 00:51 Nucleated RBC % (auto) 0 % 05/05/25 00:51 Nucleated RBCs # 0.0 /100WBC 05/05/25 00:51 Sodium 132 mmol/L (136-145) L 05/05/25 00:51 Potassium 4.8 mmol/L (3.5-5.1) 05/05/25 00:51 Chloride 100 mmol/L (98-107) 05/05/25 00:51 Carbon Dioxide 22 mmol/L (22-29) 05/05/25 00:51 Anion Gap 14.8 (5-19) 05/05/25 00:51 BUN 17 mg/dL (8-23) 05/05/25 00:51 Creatinine 0.8 mg/dL (0.5-0.9) 05/05/25 00:51 GFR Calculation Not Reportable 05/05/25 00:51 Glucose 129 mg/dL (65-115) H 05/05/25 00:51 Calculated Osmolality 277 mOsm/kg (285-295) L 05/05/25 00:51 Calcium 9.1 mg/dL (8.5-10.5) 05/05/25 00:51 Phosphorus 2.8 mg/dL (2.5-4.5) 05/05/25 00:51 Magnesium 2.3 mg/dL (1.7-2.3) 05/05/25 00:51 Total Bilirubin 0.5 mg/dL (0.15-1.2) 05/05/25 00:51 AST 32 U/L (0-32) 05/05/25 00:51 ALT 29 U/L (0-33) 05/05/25 00:51 Alkaline Phosphatase 112 U/L (35-105) H 05/05/25 00:51 Creatine Kinase 139 U/L (26-192) 05/05/25 00:51 Troponin T Baseline 17 ng/L (0-10) H 05/05/25 00:51 Troponin T 120 Minute 11.66 ng/L (0-10) H 05/05/25 02:50 Delta Troponin T -5.34 ABS# (0-10) L 05/05/25 02:50 C-Reactive Protein 3.0 mg/L (0.0-4.9) 05/05/25 00:51 NT-Pro-B Natriuret Pep 606 pg/mL (0-450) H 05/05/25 00:51 Total Protein 6.9 g/dL (6.6-8.7) 05/05/25 00:51 Albumin 4.4 g/dL (3.5-5.2) 05/05/25 00:51 Globulin 2.5 g/dL (1.3-4.6) 05/05/25 00:51 TSH 2.01 uIU/mL (0.27-4.20) 05/05/25 00:51 Urine Color Yellow (Yellow) 05/05/25 01:21 Urine Appearance Cloudy (CLEAR) A 05/05/25 01:21 Urine pH 6.0 (5-7) 05/05/25 01:21 Ur Specific [place] 1.013 (1.005-1.030) 05/05/25 01:21 Urine Protein 1+ (Negative) A 05/05/25 01:21 Urine Glucose (UA) Negative (Normal) 05/05/25 01:21 Urine Ketones Negative (Negative) 05/05/25 01:21 Urine Blood Trace (Negative) A 05/05/25 01:21 Urine Nitrate Positive (Negative) A 05/05/25 01:21 Urine Bilirubin Negative (Negative) 05/05/25 01:21 Urine Urobilinogen 1.0 mg/dL (Negative) 05/05/25 01:21 Ur Leukocyte Esterase 1+ (Negative) A 05/05/25 01:21 Urine RBC 0-2 /hpf (0-2) 05/05/25 01:21 Urine WBC 11-20 /hpf (0-5) H 05/05/25 01:21 Ur Squamous Epith Cells 0-5 /hpf (0-5) 05/05/25 01:21 Amorphous Sediment Not Reportable 05/05/25 01:21 Urine Bacteria 4+ /hpf (NONE) H 05/05/25 01:21 Hyaline Casts 4.11 /lpf 05/05/25 01:21 All radiology interpretation(s) finalized by discharge Discharge Plan Discharge Patient Disposition: Home Clinical Impression: Acute UTI, Elevated brain natriuretic peptide (BNP) level Condition: Stable Prescriptions: New cephalexin 500 mg capsule 500 mg PO BID Qty: 10 0RF No Action metoprolol succinate 25 mg tablet extended release 24 hr 25 mg PO DAILY ferrous sulfate 325 mg (65 mg iron) tablet 325 mg PO DAILY nitrofurantoin macrocrystal 100 mg capsule 100 mg PO BID Rx Instructions: must administer with a meal/food nitrofurantoin macrocrystal 100 mg capsule 100 mg PO DAILY 180 Days Qty: 720 4RF Rx Instructions: must administer with a meal/food Discharge Orders: Discharge ED (Routine); Ordered 05/05/25 Ordered By: Keith Bray Referrals: Venkata Davila MD [Physician, Cardiology] - 4-7 days Clinical Impression: Elevated brain natriuretic peptide (BNP) level Patient Instructions: Altered Mental Status (ED), Opioid Safety, Pain Management, Patient Portal & Bonnie Instructions Activity Restrictions/Additional Instructions: You were seen for your episode of altered mental status, you were evaluated with labs, chest x-ray and EKG which found you to have a urinary tract infection, for this, take the Keflex 500 mg twice daily for 5 days, take this with food if possible. Your heart stretch enzyme was also mildly elevated which is presumably new and for this he will be referred to the wellness ambassador to set up further testing to further assess for the beginnings of heart failure. Return to the ED with severe abdominal pain, fevers that do not improve with Tylenol, difficulties breathing, severe chest pains, any other emergent concerns. Print Language: Yakut Coding Level of Care Code ED Rubber Stamp Die Inspector for Tristian Rausch
[2025-05-05 03:27] LABS: Troponin 5 2HR 11.66 ng/L (0-10)
[2025-05-05 03:30] LABS: Troponin 5 2HR Delta -5.34 ABS# (0-10)
[2025-05-05 03:53] VITALS: BP 114/75; PULSE 93; O2SAT 94
== END 2025-05-05 04:07 | disposition home or self-care (01) ==
PROVIDERS: Emergency Provider Student in an Organized Health Care Education/Training Program; PCP Electrodiagnostic Medicine
DX: N39.0 Urinary tract infection, site not specified (principal); R79.89 Other specified abnormal findings of blood chemistry
CPT/HCPCS: 36415; 71045; 80053; 81001; 82550; 83735; 83880; 84100; 84443; 84484; 85025; 86140; 87077; 87086; 87186; 93005; 99285

== ENCOUNTER 2025-05-23 14:45 | Outpatient (CLI) | payer MEDICARE, SELFPAY ==
--- NOTE | 2025-05-23 14:55 | MR_ITS ---
WS: [id number] MRI HEAD WITHOUT CONTRAST TECHNIQUE: Sagittal T1, T2 axial, T2 axial FLAIR, axial and coronal T1 images, axial susceptibility weighted imaging, axial diffusion weighted images, and coronal T2 images were obtained. CLINICAL INFORMATION: HX OF TRAUMATIC BRAIN INJURY COMPARISON: None. FINDINGS: No evidence of restricted diffusion to suggest acute ischemia. Mild small vessel changes with moderate parenchymal volume loss worse in the parietal lobes. No hemosiderin on susceptibility-weighted images. Normal vascular vascular flow voids at the skull base. RIGHT mastoid effusion. Mild mucosal thickening LEFT mastoid air cells. Normal optic chiasm and pituitary infundibulum. Temporal lobes and hippocampal formations are normal in appearance. MR/MR head wo con* [id number] IMPRESSION: 1. No evidence of restricted diffusion to suggest acute ischemia. 2. Mild small vessel changes. Moderate parenchymal volume loss worse in the bi lateral parietal lobes. 3. No hemosiderin on susceptibility-weighted images. 4. Temporal lobes and hippcampal formations are normal in appearance. 5. RIGHT mastoid effusion. Mild mucosal thickening LEFT mastoid air cells. 6. No other acute findings.
== END 2025-05-23 14:46 | disposition home or self-care (01) ==
LOC: RAD 14:47
PROVIDERS: PCP Electrodiagnostic Medicine; Visit Provider Electrodiagnostic Medicine
DX: Z87.820 Personal history of traumatic brain injury (principal); I67.82 Cerebral ischemia; G31.89 Other specified degenerative diseases of nervous system; J34.89 Other specified disorders of nose and nasal sinuses
CPT/HCPCS: 70551

== ENCOUNTER 2025-05-29 07:27 | Outpatient (CLI) | payer MEDICARE, SELFPAY ==
--- NOTE | 2025-05-29 07:40 | USCV_ITS ---
Adelaida Osman Age: 79 Gender: F : 1945 Exam Date: 05/29/2025 07:59 Ordering Phys: Evert Duarte DO Technologist: Exam [place] [facility] [place]: cp sob BP: 120 / 80 HR: 60 Rhythm: Sinus Technical Quality: Adequate MEASUREMENTS (Male / Female) Normal Values 2D ECHO LVOT Diameter 1.9 cm LV Ejection Fraction MOD 4C 55.9 % LV Ejection Fraction MOD 2C 62.2 % LV Ejection Fraction 2C AL 63.1 % LA Diameter 3.3 cm RA Systolic Volume 4C AL 23.5 ml RA Systolic Volume 4C MOD 23.5 ml Aorta at Sinotubular Diameter 2.5 cm M-MODE LA Ao Ratio MM 1.1 AV Cusp Separation MM 2.2 cm DOPPLER AV Peak Velocity 137.3 cm/s LVOT Peak Velocity 76.0 cm/s AV Area Cont Eq vti 2.2 cm squared AV Area Cont Eq pk 1.6 cm squared MV Peak Velocity 99.0 cm/s MV Area PHT 4.6 cm squared Mitral E to A Ratio 0.9 TV Peak Velocity 165.0 cm/s TR Peak Velocity 221.0 cm/s TR Peak Gradient 19.5 mmHg PV Peak Velocity 72.0 cm/s FINDINGS Left Ventricle Normal left ventricular size, systolic function and wall thickness, with no regional wall motion abnormalities. Left ventricular ejection fraction is estimated at 60 %. Grade I/IV diastolic dysfunction (abnormal relaxation filling pattern), normal to mildly elevated filling pressures. Right Ventricle Normal right ventricular size and systolic function. Right Atrium Normal right atrial size. Left Atrium Moderately increased left atrial size. IA Septum Normal appearance of the interatrial septum. Mitral Valve Moderately thickened mitral valve. No mitral valve stenosis. Moderate mitral valve regurgitation. Aortic Valve Normal aortic valve structure. No aortic valve stenosis or regurgitation. Tricuspid Valve Normal tricuspid valve structure. No tricuspid valve stenosis or regurgitation. Normal pulmonary pressure. Pulmonic Valve Normal pulmonic valve structure. No pulmonic valve stenosis or regurgitation. Pericardium No pericardial effusion. Aorta Normal diameter of the aortic root and ascending thoracic aorta. IVC Normal IVC diameter. CONCLUSIONS Normal left ventricular size, systolic function and wall thickness, with no regional wall motion abnormalities. Left ventricular ejection fraction is estimated at 60 %. Grade I/IV diastolic dysfunction (abnormal relaxation filling pattern), normal to mildly elevated filling pressures. Moderately increased left atrial size. Moderately thickened mitral valve. No mitral valve stenosis. Moderate mitral valve regurgitation. There is no pericardial effusion. Right atrial pressure is around 5 mm of mercury. Jovan Gutierrez MD (Electronically Signed) Final Date: 07 June 2025 23:38 S
== END 2025-05-29 07:28 | disposition home or self-care (01) ==
LOC: RAD 07:28
PROVIDERS: PCP Electrodiagnostic Medicine; Visit Provider Electrodiagnostic Medicine
DX: R55 Syncope and collapse (principal); R93.1 Abnormal findings on diagnostic imaging of heart and coronary circulation; I51.7 Cardiomegaly; I34.0 Nonrheumatic mitral (valve) insufficiency
CPT/HCPCS: 93306